=== PATIENT | male | born 1980 ===

== ENCOUNTER → 2022-10-10 07:06 | Outpatient (CLI) | payer BC, SELFPAY ==
--- NOTE | ~2022-10-10 | MR_ITS ---
MRI of the left knee Clinical history: Pain Technique: Coronal proton density and proton density-weighted images, sagittal proton-density and T2 fat-sat images, and axial proton-density fat-saturated images were acquired. Findings: Anterior and posterior cruciate ligaments are intact. Medial collateral ligament and the la teral collateral complex are intact. Popliteus tendon is intact. No lateral meniscal tear seen. Questionable subtle horizontal undersurface tear of the body segment o f the medial meniscus. There is focal chondromalacia at the medial joint line at the anterior aspect of the medial tibial pl ateau with focal underlying reactive marrow edema. Articular cartilage otherwise is well preserved th roughout the knee. Remaining bone marrow signals are unremarkable. Extensor mechanism is intact. No significant joint effusion. No Porter's cyst. Impression: Questionable subtle horizontal undersurface tear of the body segment of the medial meniscus. 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 Reviewed, dictated and finalized at location [] [employer] ADVISOR Impression: Questionable subtle horizontal undersurface tear of the body segment of the med ial meniscus. 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
== END ==
PROVIDERS: Visit Provider Orthopaedic Surgery
DX: M25.562 Pain in left knee (principal); G89.29 Other chronic pain; M94.262 Chondromalacia, left knee
CPT/HCPCS: 73721